=== PATIENT | male | born 1975 | race Caucasian/White ===

== ENCOUNTER 2017-05-06 12:23 | Emergency (ER) | payer SELFPAY ==
[~2017-05-06] VITALS: Ht 172.7 cm; Wt 106.0 kg
[2017-05-06] MEDS ORDERED: DICYCLOMINE 10 MG/5 ML ORAL SYR PO STA (13:12)
[2017-05-06] MEDS ORDERED: MORPHINE SULFATE 4 MG/ML CPJ (NOT FOR IM USE) IV STA (13:12)
[2017-05-06] MEDS ORDERED: VISCOUS LIDOCAINE 2% 15 ML UDC PO STA (13:12)
[2017-05-06] MEDS ORDERED: MAGNESIUM/ALUMINUM HYDROXIDE/SIMETHICONE 30ML UDC PO STA (13:12)
[2017-05-06] MEDS ORDERED: ONDANSETRON HCL 4MG/2ML VIAL IV STA (13:12)
[2017-05-06 14:29] LABS: EOSINOPHILS % 1.9 % (0.0-5.0); HEMATOCRIT. 42.5 % (42.0-52.0); HEMOGLOBIN. 14.3 g/dL (14.0-18.0); LYMPHOCYTES % 21.7 % (20.0-50.0); MEAN CORPUSCULAR HEMOGLOBIN 27.1 pg (28.0-32.0); MEAN CORPUSCULAR VOLUME 80.7 fL (80.0-94.0); MEAN PLATELET VOLUME 8.5 fl (7.4-10.4); NEUTROPHILS % 69.4 % (40.0-76.0); PLATELET 273 x1000/uL (130-400); RED BLOOD CELL COUNT 5.26 mill/uL (4.7-6.1); RED CELL DISTRIBUTION WIDTH 13.6 % (11.6-14.6)
[2017-05-06 14:30] LABS: CHLORIDE 108 mEq/L (98-107)
[2017-05-06 14:31] LABS: PROTHROMBIN TIME 10.4 sec (9.4-11.6)
[2017-05-06 14:46] LABS: CARBON DIOXIDE 24 mEq/L (21-32)
[2017-05-06 15:00] VITALS: BP 127/74
== END 2017-05-06 15:37 | disposition home or self-care (01) ==
LOC: ER 12:32
DX: R10.13 Epigastric pain (principal)
CPT/HCPCS: 36415; 76705; 80053; 83690; 85025; 85610; 96374; 96375; 99285; J2270; J2405; Z7610

== ENCOUNTER 2017-08-25 12:54 | Emergency (ER) | payer SELFPAY ==
[~2017-08-25] VITALS: Ht 165.1 cm; Wt 96.0 kg
[2017-08-25] MEDS ORDERED: TRAMADOL 50MG TABLET PO ONE (18:15)
[2017-08-25 19:45] LABS: BASOPHILS % 0.7 % (0.0-2.0); CHLORIDE 108 mEq/L (98-107); EOSINOPHILS % 2.2 % (0.0-5.0); HEMATOCRIT. 43.3 % (42.0-52.0); HEMOGLOBIN. 14.6 g/dL (14.0-18.0); LYMPHOCYTES % 37.7 % (20.0-50.0); MEAN CORPUSCULAR VOLUME 80.4 fL (80.0-94.0); MEAN PLATELET VOLUME 8.2 fl (7.4-10.4); MONOCYTES % 5.2 % (2.0-8.0); NEUTROPHILS % 54.2 % (40.0-76.0); PLATELET 290 x1000/uL (130-400); PROTHROMBIN TIME 10.8 sec (9.4-11.6); RED BLOOD CELL COUNT 5.38 mill/uL (4.7-6.1); RED CELL DISTRIBUTION WIDTH 13.4 % (11.6-14.6)
[2017-08-25 19:53] LABS: CARBON DIOXIDE 24 mEq/L (21-32)
[2017-08-25 20:02] LABS: CLARITY URINE CLEAR (CLEAR); COLOR URINE YELLOW (YELLOW); KETONES URINE NEGATIVE (NEGATIVE); LEUKOCYTE ESTERASE URINE NEGATIVE (NEGATIVE); NITRITE URINE NEGATIVE (NEGATIVE); OCCULT BLOOD URINE TRACE (NEGATIVE); PROTEIN URINE NEGATIVE (NEGATIVE); SPECIFIC GRAVITY URINE 1.025 (1.005-1.030); UROBILINOGEN URINE 0.2 E.U./dL (0.2-1.0)
[2017-08-25] MEDS ORDERED: IOHEXOL-300 100 ML BOTTLE ONE (20:50)
[2017-08-25 21:55] VITALS: BP 111/67
== END 2017-08-25 21:55 | disposition home or self-care (01) ==
LOC: ER 14:04
DX: R10.32 Left lower quadrant pain (principal)
CPT/HCPCS: 36415; 71101; 74177; 80053; 81001; 83690; 85025; 85610; 99285; Q9967; Z7610